=== PATIENT | male | born 1955 ===

== ENCOUNTER 2021-05-25 06:56 | Outpatient (CLI) | payer BC, SELFPAY ==
--- NOTE | 2021-05-25 07:04 | US_ITS ---
WS: [id number] RIGHT UPPER QUADRANT ULTRASOUND HISTORY: RIGHT UPPER QUADRANT COMPARISON: 09/05/2008 Liver: 13.3 cm in length. Normal size liver. Coarse echotexture. Multiple hepatic cysts are identifie d. Hepatic cyst in the LEFT lobe of the liver does contain a septation. This cyst measures 4.0 x 2.5 x 2.6 cm and is very similar in appearance to the prior CT from 2018. No solid masses. Gallbladder: Normally distended gallbladder with no stones or wall thickening. CBD: 0.4 cm Pancreas: Not visualized. Right kidney: 11.7 cm in length. RIGHT kidney is normal size. No obstruction. There are a few small c ysts scattered throughout the parenchyma. No solid mass identified. Aorta and IVC: Unremarkable abdominal aorta and IVC. No ascites. US/US abdomen limited [id number] IMPRESSION: 1. Technically limited evaluation of the RIGHT upper quadrant due to body habi tus. 2. Normal size liver with several hepatic cysts. 3. Negative gallbladder.
== END 2021-05-25 06:57 | disposition home or self-care (01) ==
PROVIDERS: PCP Family Medicine; Visit Provider Family Medicine
DX: R10.11 Right upper quadrant pain (principal)
CPT/HCPCS: 76705

== ENCOUNTER 2021-08-17 13:23 | Outpatient (CLI) | payer BC, SELFPAY ==
--- NOTE | 2021-08-17 13:36 | CT_ITS ---
WS: [id number] CT ABDOMEN CONTRAST TECHNIQUE: Contrast enhanced CT of the abdomen with coronal and sagittal reformatted images. CLINICAL INFORMATION: HEPATIC CYST, ABDOMINAL PAIN RIGHT UPPER QUADRANT COMPARISON: CT . Ultrasound May 25, 2021 DLP: 905.[address] scans at [facility] use at least one of these dose optimization techniques: automated e xposure control; mA and/or kV adjustment per patient size (includes targeted exams where dose is matc hed to clinical indication); or iterative reconstruction. FINDINGS: Mild diffuse fatty infiltration liver. Numerous hepatic cysts largest in left hepatic lobe. Left hepa tic cyst measures 3.1 x 2.0 CM. Normal portal vein and splenic vein. Normal gallbladder. Bibasilar atelectasis. Moderate esophageal hiatal hernia similar to previous. Tiny splenic granulomas . Adrenal glands are normal. Normal renal parenchymal enhancement. No hydronephrosis. Bilateral renal cysts. Normal caliber abdominal aorta. Aortic calcification. Tiny fat-containing umbilical hernia. CT/CT abdomen w con* [id number] IMPRESSION: 1. Diffuse fatty infiltration of the liver with numerous hepatic cysts unchang ed since the prior examinations. Largest in the left measuring lobe measuring 3 .0 x 2.0 cm unchanged. 2. Moderate esophageal hiatal hernia appears slightly progressed compared to 2 017. 3. Normal renal parenchymal enhancement. No hydronephrosis. 4. Bilateral renal cysts. 5. No other significant findings.
[2021-08-17 14:11] LABS: Blood Urea Nitrogen 13 mg/dL (8-23); Glomerular Filtration Rate 112.8 mL/min (90-130)
[2021-08-17] MEDS: iohexol 350 mg/mL 100 mL Btl IV (16:10)
== END 2021-08-17 13:24 | disposition home or self-care (01) ==
PROVIDERS: PCP Family Medicine; Visit Provider Family Medicine
DX: K76.89 Other specified diseases of liver (principal); R10.11 Right upper quadrant pain; Q61.02 Congenital multiple renal cysts; K44.9 Diaphragmatic hernia without obstruction or gangrene; K76.0 Fatty (change of) liver, not elsewhere classified
CPT/HCPCS: 74160; 82565; 84520; Q9967

== ENCOUNTER 2021-08-24 08:16 | Outpatient (CLI) | payer BC, SELFPAY ==
--- NOTE | 2021-08-24 08:32 | ECG_ITS ---
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 Interpretive Statements NAME OF STUDY: LEXISCAN SESTAMIBI STRESS TEST INDICATION: Chest Pain PROCEDURE: At the baseline, the blood pressure was 187/114 mmHg with a heart rate of 80 bpm. The electrocardiogram showed normal sinus rhythm, normal axis. Left bundle branch block. The Lexiscan was infused over a period of 20 seconds. A total of 0.4 milligrams of Lexiscan was infused. The stress phase was continued for a total of 5 minutes. Heart rate at the end of the stress phase was 96 bpm, oxygen saturation 96% with a blood pressure of 194/103 mmHg. The EKG at the peak infusion revealed sinus tachycardia with left bundle branch block. The study was terminated due to protocol completion. Sestamibi was injected 20 seconds after the Lexiscan infusion. Blood pressure at the end of the recovery phase was 163/97 mmHg, oxygen saturation 94% with a heart rate of 91 beats per minute. CONCLUSION: 1. Uninterpretable EKG with the LexiScan infusion given baseline left bundle branch block. 2. No LexiScan induced chest pain or cardiac arrhythmia. 3. Baseline hypertension with normal blood pressure and heart rate response. 4. Sestamibi/sestamibi perfusion scan pending; see separate report. Electronically Signed On 08-24-2021 13:53:38 CLOTH TESTER by Chitra Dyson M.D. [id number]
--- NOTE | 2021-08-24 08:33 | NMCV_ITS ---
NM melchor perf SPECT r/s* [id number] FreddieRobe wang Age: 66 Gender: M : 1955 Exam Date: 08/24/2021 09:48 Ordering Phys: Stevo Streeter MD Technologist: MITCHELL Bergeron Exam Location: [facility] Indications: CHEST PAIN STRESS TEST Please see separate stress test report in [facility] for full findings IMAGE PROTOCOL Rest/Stress 1 Lexiscan Day Radiopharmaceutical Dose (mCi) Administration Site Administered by Rest: Tc-99m 11.0 IV MITCHELL Bergeron Sestamibi Stress:Tc-99m 32.7 IV MITCHELL Castillo Sestamibi Rest: 24-Aug-2021 60 Discovery 630 Stress: 24-Aug-2021 30 Discovery 630 0.4mg Lexiscan. Images obtained in supine and prone position. SPECT RESULTS Technical Quality: Excellent Raw Data Analysis: Normal Image Corrections: No attenuation or motion correction applied Summed Stress Score: 6 Summed Rest Score: 8 Summed Difference Score: 0 PERFUSION FINDINGS Small sized perfusion abnormality of mild severity of mid to apical septal and apical banks on rest and stress images. FUNCTIONAL RESULTS (calculated via Gated SPECT) Stress Image LV EF (%): 61 Stress EDV (mL):106 TID: 1 Stress ESV (mL):41 FUNCTIONAL FINDINGS: The left ventricle is normal in size. Transient Ischemia Dilatation of 1. There is normal left ventricular systolic function. The left ventricular ejection fraction is normal with a value of 61%. There is normal left ventricular wall thickening. Abnormal septal motion. Normal end-diastolic end-systolic volumes. IMPRESSIONS 1. Small sized fixed perfusion abnormality of mild severity of mid to apical septal and apical banks. 2. This may represent attenuation artifact or old myocardial infarction without any santosh-infarct ischemia. 3. Overall left ventricular systolic function is normal without regional wall motion abnormalities, LVEF=61%. 4. No coronary ischemia based on the study. Chitra Dyson MD (Electronically Signed) Final Date: 25 August 2021 16:23 S
[2021-08-24 08:44] VITALS: BMI 26.6
--- NOTE | 2021-08-24 10:33 | PC.NURSE ---
Pt rhythm LBBB. Dr. Dyson notified and received telephone orders to cancel treadmill mibi and switch to lexiscan stress test.
[2021-08-24] MEDS: regadenoson 0.4 Mg/5 ml Syringe IVP (10:43)
[2021-08-24 10:45] VITALS: BP 186/99; PULSE 94
--- NOTE | 2021-08-24 12:05 | PC.NURSE ---
Hypertension Dr. Dyson notified of completion of stress test and hypertension now present. BP 180-190 systolic and ranging 90-100 diastolic. Pt reports not on any BP medications. Dr. Dyson ordered patient to see PCP as soon as possible regarding medication adjustments/changes. Nursing staff educated on effects of high BP, pt was resistant to learning and denies need for BP medication. After 2nd nuc med scan patient requested nursing staff take BP once more. BP reading X 2 was 203/97. Nursing offered to call PCP and check availability and obtain appointment, pt declined. Pt was offered to be assisted to ED to be checked out and declined.
== END 2021-08-24 08:17 | disposition home or self-care (01) ==
LOC: RAD 08:28 → CDL 08:33
PROVIDERS: PCP Family Medicine; Visit Provider Family Medicine
DX: R07.9 Chest pain, unspecified (principal); I10 Essential (primary) hypertension
CPT/HCPCS: 78452; 93017; A9500; J2785

== ENCOUNTER → 2022-07-01 13:06 | Outpatient (BNVA) | payer BC, SELFPAY | PROVIDERS: PCP Family Medicine; Visit Provider Family Medicine | DX: Z00.00 Encounter for general adult medical examination without abnormal findings (principal); R25.2 Cramp and spasm; R53.81 Other malaise; R53.83 Other fatigue; Z51.81 Encounter for therapeutic drug level monitoring; Z13.220 Encounter for screening for lipoid disorders; M54.30 Sciatica, unspecified side; I10 Essential (primary) hypertension | CPT/HCPCS: 80053; 80061; 83735; 84443; 85025 ==

== ENCOUNTER → 2023-09-05 15:31 | Outpatient (BNVA) | payer BC, SELFPAY | PROVIDERS: PCP Family Medicine; Visit Provider Clinical Nurse Specialist Adult Health | DX: I10 Essential (primary) hypertension (principal); H61.23 Impacted cerumen, bilateral | CPT/HCPCS: 80053; 80061; 84443; 85025 ==

== ENCOUNTER → 2024-05-16 10:37 | Outpatient (BNVA) | payer BC, SELFPAY | PROVIDERS: PCP Family Medicine; Visit Provider Family Medicine | DX: R53.81 Other malaise (principal); R53.83 Other fatigue | CPT/HCPCS: 84403 ==

== ENCOUNTER → 2024-10-02 14:59 | Outpatient (BNVA) | payer BC, SELFPAY | PROVIDERS: PCP Family Medicine; Visit Provider Family Medicine | DX: Z00.00 Encounter for general adult medical examination without abnormal findings (principal); Z51.81 Encounter for therapeutic drug level monitoring; Z13.220 Encounter for screening for lipoid disorders | CPT/HCPCS: 80053; 80061; 84153; 85025 ==

== ENCOUNTER → 2025-06-05 09:46 | Outpatient (BNVA) | payer MEDICARE, SELFPAY | PROVIDERS: PCP Family Medicine; Visit Provider Dermatology | DX: L40.0 Psoriasis vulgaris (principal); D18.01 Hemangioma of skin and subcutaneous tissue; D48.5 Neoplasm of uncertain behavior of skin; L57.0 Actinic keratosis | CPT/HCPCS: 11102; 17000; 99203 ==

== ENCOUNTER 2025-07-30 07:28 | Outpatient (CLI) | payer MEDICARE, SELFPAY ==
--- NOTE | 2025-07-30 07:42 | XR_ITS ---
WS: [id number] Lumbar spine, 3 views, 07/30/2025 Clinical Data: LUMBAR STENOSIS Comparison: Lumbar spine, 10/08/2016 Findings: No acute compression fractures or subluxation is seen. There is slight wedging of the L1 and L2 vertebral bodies. There is degenerative disc narrowing at all levels. There is anterior osteoarthritic spurring L1-L4. There is a levoscoliosis and an L5 laminectomy. The transverse processes and SI joints are normal. There is calcification in the wall of the abdominal aorta but no aneurysm. XR/XR lumbar spine 2-3V* [id number] Impression: 1. Chronic wedge deformities of L1 and L2. 2. Multilevel degenerative disc narrowing and osteoarthritic spurring. 3. Levoscoliosis and L5 laminectomy.
== END 2025-07-30 07:29 | disposition home or self-care (01) ==
PROVIDERS: PCP Family Medicine; Visit Provider Surgery
DX: M48.061 Spinal stenosis, lumbar region without neurogenic claudication (principal); M48.56XA Collapsed vertebra, not elsewhere classified, lumbar region, initial encounter for fracture; M41.86 Other forms of scoliosis, lumbar region; Z98.890 Other specified postprocedural states
CPT/HCPCS: 72100